=== PATIENT | male | born 1935 | race Caucasian/White ===

== ENCOUNTER 2018-02-08 14:37 | Inpatient (IN) | payer MEDICARE, BC ==
[~2018-02-08] VITALS: Ht 180.3 cm; Wt 95.3 kg
[2018-02-08] MEDS ORDERED: ENALAPRIL (14:53)
[2018-02-08] MEDS ORDERED: METOPROLOL PO (14:53)
[2018-02-08 15:31] LABS: BASOPHILS # (AUTO) 0.1 K/uL (0.0-8.0); BASOPHILS % (AUTO) 0.6 % (0.0-2.0); EOSINOPHILS # (AUTO) 0.1 K/uL (0.0-0.7); HEMATOCRIT 50.6 % (36.7-47.1); HEMOGLOBIN 16.8 g/dL (12.5-16.3); LYMPHOCYTES % (AUTO) 14.4 % (20.5-51.5); MEAN CORPUSCULAR HEMOGLOBIN 31.7 uug (23.8-33.4); MEAN CORPUSCULAR HGB CONC 33 g/dL (32.5-36.3); MEAN CORPUSCULAR VOLUME 95.8 fL (73.0-96.2); MONOCYTES # (AUTO) 1.1 K/uL (2.0-10.0); MONOCYTES % (AUTO) 7.9 % (0.0-11.0); NEUTROPHILS # (AUTO) 10.7 K/uL (1.8-8.9); NEUTROPHILS % (AUTO) 76.1 % (38.5-71.5); PLATELET COUNT (AUTO) 146 K/uL (152-348); RED BLOOD CELL COUNT(AUTO) 5.28 MIL/uL (4.06-5.63); WHITE BLOOD COUNT (AUTO) 14.1 K/uL (3.6-10.2)
[2018-02-08 15:33] LABS: CARBON DIOXIDE 30 mmol/L (21-32); CHLORIDE 105 mmol/L (98-107); CREATININE 1.6 mg/dL (0.6-1.3); GLUCOSE 132 mg/dL (74-106); POTASSIUM 4.9 mmol/L (3.5-5.1); UREA NITROGEN, BLOOD 23 mg/dL (7-18)
[2018-02-08 15:38] LABS: ALANINE AMINOTRANSFERASE 47 U/L (16-63); ALKALINE PHOSPHATASE 47 U/L (50-136); ASPARTATE AMINOTRANSFERASE 29 U/L (15-37); BILIRUBIN,TOTAL 1.3 mg/dL (0.2-1.0); CREATINE KINASE, TOTAL 131 U/L (39-308); TOTAL PROTEIN, SERUM 6.7 g/dL (6.4-8.2)
--- NOTE | 2018-02-08 16:38 | NUR ---
LOREN BARRIENTOS TALKING TO DR. ALCARAZ PT OWN PMD, PER PT REQUEST. Addendum: 02/08/18 at 1646 by SHELBI [phone]
--- NOTE | 2018-02-08 16:51 | NUR ---
Received telephone call from Gi from pt's pmd office ( Dr. Duque ) who stated they called [facility] and attempted to transfer the patient but were told there are no beds available.
[2018-02-08 16:57] LABS: *BLOOD, URINE Trace-lysed (NEGATIVE); *CLARITY,URINE CLEAR (CLEAR); *COLOR,URINE DARK YELLOW (YELLOW); *KETONES,URINE 1+ (NEGATIVE); *PROTEIN,URINE 2+ (NEGATIVE); *UROBILINOGEN,URINE 0.2 E.U./dl (NORMAL); LEUKOCYTE ESTERASE ,URINE NEGATIVE (NEGATIVE); NITRITE, URINE NEGATIVE (NEGATIVE); PH,URINE 5.5 (5.0-8.0); UGLUCOSE NEGATIVE (NEGATIVE)
[2018-02-08 17:16] LABS: *BILIRUBIN,URIN 1+ (NEGATIVE)
[2018-02-08 17:19] LABS: MUCUS,URINE MANY /LPF (0-FEW); WBC,URINE 0-3 /HPF (0-3)
[2018-02-08] MEDS: IV NS 1000 ML 1,000 ML IV PRN ×2 (17:40→23:54)
--- NOTE | 2018-02-08 18:57 | NUR ---
REYNALDO GRANGER PROVIDED FOR PT.
--- NOTE | 2018-02-08 19:16 | NUR ---
ASSUMED CARE OF PATIENT. PATIENT AWAITING INPATIENT ADMISSION. PATIENT NOTED W/ A-FIB ON MANAGER OF SUPPLY CHAIN. THIS CONDITION IS CHRONIC PER PATIENT. NO ACUTE DISTRESS AT THIS TIME. PATIENT DENIES CHEST PAIN/RESPIRATORY DISTRESS.
[2018-02-08 20:00] VITALS: BP 139/78
--- NOTE | 2018-02-08 20:23 | NUR ---
Pt. admitted to Telemetry , under care of Dr. May. Dx: Syncope. Belongs List completed. Report given to Abigail Payne , charge nurse for Telemetry unit.
--- NOTE | 2018-02-08 20:30 | NUR ---
PT RECEIVED FROM ED, VIA WHEELCHAIR. ORIENTED TO ROOM. A/OX3. ABLE TO MAKE NEEDS KNOWN. V/S STABLE. IN NO ACUTE DISTRESS. NO C/O PAIN AT THIS TIME. 117 AFIB ON THE TELE MONITOR. ON RA, TOLERATING WELL. AFEBRILE. WITH IV INTACT AND PATENT. IVF HELD AT THIS TIME PER MD ORDERS. AT BEDSIDE. HOB ELEVATED. SAFETY MEASURES IMPLEMENTED. BED ALARM SET. CALL LIGHT WITHIN REACH.
[2018-02-08] MEDS ORDERED: METOPROLOL TARTRATE 25 MG TABLET PO SCH (21:00)
[2018-02-08] MEDS ORDERED: MORPHINE SULFATE 4 MG/1 ML DISP.SYRIN IV PRN ×2 (22:15→23:45)
[2018-02-08] MEDS ORDERED: ONDANSETRON 4 MG/2 ML VIAL IV PRN ×2 (22:15→23:45)
[2018-02-08] MEDS ORDERED: ACETAMINOPHEN 325 MG TABLET PO PRN ×2 (22:15→23:45)
[2018-02-08] MEDS ORDERED: ATORVASTATIN 20 MG TABLET PO ONE (22:30)
[2018-02-08] MEDS ORDERED: ASPIRIN EC 325 MG TABLET.DR PO ONE (22:30)
[2018-02-08] MEDS ORDERED: HEPARIN/D5W DRIP 500 ML IV PRN (23:15)
[2018-02-08] MEDS ORDERED: AMIODARONE HCL IV 150 MG in IV DEXTROSE 5% 100 ML IV ONE (23:15)
--- NOTE | 2018-02-08 23:45 | NUR ---
PATIENT TRANSFERRED TO CCU, PER MD ORDER. PT SEEN WITH A-FIB AND INCREASED HR ON TELE MONITOR. ALL NEEDS ATTENDED. SAFETY MAINTAINED.
[2018-02-09] VITALS (8 sets, daily range): BP systolic 109–193; BP diastolic 58–108
--- NOTE | 2018-02-09 | NUR ---
RECEIVED PT FROM [facility]2 VIA BED, AAOX3, DENIES CHEST PAIN. CONNECTED TO BEDSIDE MONITORS. C-SCOPE AFIB CONTROLLED-84. O2 SAT ON RM AIR 98%. STARTED #2 IV SITE FOR DRIPS. VOIDED TO CLEAR VERNA URINE ADEQ. AMT. CORDARONE 150MG IV BOLUS GIVEN THEN STARTED ON CORDARONE DRIP @ 1MG/HR. ON LEFT HAND IV SITE ORDERED. NOT IN ANY DISTRESS.
[2018-02-09] MEDS ORDERED: AMIODARONE HCL 150 MG/3 ML VIAL IV ONE ×2 (00:04)
[2018-02-09] MEDS ORDERED: METOPROLOL TARTRATE 25 MG TABLET ONE (00:23)
[2018-02-09] MEDS: METOPROLOL TARTRATE 25 MG TABLET PO SCH ×3 (00:24→12:12)
[2018-02-09] MEDS ORDERED: HEPARIN SODIUM,PORCINE 5,000 UNITS/ML VIAL ONE (00:48)
--- NOTE | 2018-02-09 00:50 | NUR ---
C-SCOPE CONVERTED TO SR W/ STABLE BP.
[2018-02-09] MEDS ORDERED: HEPARIN SODIUM,PORCINE 10,000 UNITS/10 ML VIAL INJ ONE (01:00)
--- NOTE | 2018-02-09 01:12 | NUR ---
STARTED HEPARIN DRIP @ 1425UNITS PER HOUR, AFTER IV BOLUS 6,650UNITS ACCDG TO ACS PROTOCOL & ACCDG TO PTS. WT.
[2018-02-09] MEDS: AMIODARONE HCL IV 900 MG in IV DEXTROSE 5% 482 ML IV PRN ×3 (01:15)
[2018-02-09 05:21] LABS: BASOPHILS # (AUTO) 0.1 K/uL (0.0-8.0); BASOPHILS % (AUTO) 0.6 % (0.0-2.0); EOSINOPHILS # (AUTO) 0.2 K/uL (0.0-0.7); EOSINOPHILS % (AUTO) 2.7 % (0.0-7.0); HEMATOCRIT 44.3 % (36.7-47.1); HEMOGLOBIN 14.6 g/dL (12.5-16.3); LYMPHOCYTES # (AUTO) 2.1 K/uL (20.0-40.0); LYMPHOCYTES % (AUTO) 23.4 % (20.5-51.5); MEAN CORPUSCULAR HEMOGLOBIN 31.4 uug (23.8-33.4); MEAN CORPUSCULAR HGB CONC 33 g/dL (32.5-36.3); MEAN CORPUSCULAR VOLUME 95.3 fL (73.0-96.2); MONOCYTES # (AUTO) 0.8 K/uL (2.0-10.0); MONOCYTES % (AUTO) 8.9 % (0.0-11.0); NEUTROPHILS # (AUTO) 5.8 K/uL (1.8-8.9); NEUTROPHILS % (AUTO) 64.4 % (38.5-71.5); PLATELET COUNT (AUTO) 136 K/uL (152-348); RED BLOOD CELL COUNT(AUTO) 4.65 MIL/uL (4.06-5.63)
[2018-02-09 05:43] LABS: ALANINE AMINOTRANSFERASE 36 U/L (16-63); ALKALINE PHOSPHATASE 35 U/L (50-136); ASPARTATE AMINOTRANSFERASE 24 U/L (15-37); BILIRUBIN,TOTAL 1.3 mg/dL (0.2-1.0); CARBON DIOXIDE 26 mmol/L (21-32); CHLORIDE 107 mmol/L (98-107); CHOLESTEROL 141 mg/dL (<200); CREATININE 1.1 mg/dL (0.6-1.3); GLUCOSE 135 mg/dL (74-106); HDL CHOLESTEROL 67 mg/dL (40-60); MAGNESIUM 1.7 mg/dL (1.8-2.4); PHOSPHOROUS 3.8 mg/dL (2.5-4.9); TOTAL PROTEIN, SERUM 5.5 g/dL (6.4-8.2); TRIGLYCERIDES 17 MG/DL (30-150); UREA NITROGEN, BLOOD 22 mg/dL (7-18)
[2018-02-09 05:54] LABS: THYROID STIMULATING HORMONE 1.646 mIU/mL (0.358-3.740)
--- NOTE | 2018-02-09 06:20 | NUR ---
HOLD HEPARIN DRIP FOR 60MINS, PTT-GREATER 150 SECS. DENIES CHEST PAIN.
[2018-02-09] MEDS ORDERED: PANTOPRAZOLE SODIUM 40 MG TABLET.DR PO SCH ×2 (07:00)
--- NOTE | 2018-02-09 07:15 | NUR ---
report received.Pt remains awake,alert,oriented.Denies pain,discomfort.Denies chest pain.SR on monitor.remains on Amiodorone gtt at 0.5 mg /min.Remains on Heparin gtt at 1175 units/hr.No s/s of bleeding.Pt consumed breakfast.Tolerated well.Pt at bedside.Plan of care updated.
[2018-02-09] MEDS ORDERED: ASPIRIN EC 325 MG TABLET.DR PO SCH (09:00)
--- NOTE | 2018-02-09 09:30 | NUR ---
Pt assisted to bedside comode .Pericare provided .Assisted to bed.Remains on Amiodorone gtt,Heparin gtt.Will continue to monitor.
[2018-02-09] MEDS: IV NS 1000 ML 1,000 ML IV PRN (09:51)
[2018-02-09] MEDS ORDERED: HEPARIN SODIUM,PORCINE 5,000 UNITS/ML VIAL IV PRN (11:45)
[2018-02-09] MEDS ORDERED: MAGNESIUM OXIDE 400 MG TABLET PO ONE (11:45)
--- NOTE | 2018-02-09 15:00 | NUR ---
Pt refused to obtain MRSA swab.All benefits explained.
[2018-02-09] MEDS ORDERED: BRIM5DRO3 EACHEYE (15:43)
[2018-02-09] MEDS ORDERED: ALLO300T2 PO (15:44)
[2018-02-09] MEDS ORDERED: AMLODIPINE 5 MG TABLET PO SCH (17:15)
[2018-02-09] MEDS ORDERED: hydrALAZINE HCL 50 MG TABLET PO PRN (17:15)
--- NOTE | 2018-02-09 17:20 | NUR ---
Pt seen,examined by gravel wheeler.Clinical Project Assistant aware of high blood pressure.New orders received.
--- NOTE | 2018-02-09 17:25 | NUR ---
Pt refused to be connected to a monitor.Pulled out IV,assisted with dressing.Pt states that he wants to go home AMA.Called ,called nursing greenskeeper supervisor.Spoke with pt family about all risk.
--- NOTE | 2018-02-09 18:00 | NUR ---
at bedside,speaking to pt and pt family at bedside.
--- NOTE | 2018-02-09 19:00 | NUR ---
PT REMAINS AT BEDSIDE.REFUSED TO BE CONNECTED TO MONITOR,REFUSED TO RECHECK BLOOD PRESSURE. IS AWARE.WAITING FOR PT TO BE DISCHARGE.
[2018-02-09] MEDS ORDERED: ATOR20TA PO (19:12)
[2018-02-09] MEDS ORDERED: METO50TA16 PO (19:12)
[2018-02-09] MEDS ORDERED: PANT40TA2 PO (19:12)
[2018-02-09] MEDS ORDERED: APIX5TAB PO (19:12)
[2018-02-09] MEDS ORDERED: AMLO5TAB4 PO (19:13)
--- NOTE | 2018-02-09 19:40 | NUR ---
PATIENT DISCHARGED TO HOME WITH SON IN PRIVATE CAR. Addendum: 02/09/18 at 2000 by PETER DOTSON RN PATIENT REFUSED FINAL VITAL SIGNS & TO WAIT: TO SIGN DISCHARGE INSTRUCTIONS; WHICH, WE WILL FAX [phone]
[2018-02-09] MEDS ORDERED: DOCUSATE SODIUM 100 MG CAPSULE PO SCH ×2 (21:00)
[2018-02-09] MEDS ORDERED: METOPROLOL TARTRATE 25 MG TABLET PO SCH (21:00)
[2018-02-09] MEDS ORDERED: METOPROLOL TARTRATE 50 MG TABLET PO SCH (21:00)
[2018-02-09] MEDS ORDERED: ATORVASTATIN 20 MG TABLET PO SCH ×2 (21:00)
== END 2018-02-09 19:40 | disposition home or self-care (01) | DRG 280 ==
LOC: ER 14:37 → TELE 19:58 → CCU 23:50
PROVIDERS: ADMIT Internal Medicine; ATTEND Internal Medicine
DX: I48.0 Paroxysmal atrial fibrillation (principal); I21.A1 Myocardial infarction type 2; N17.0 Acute kidney failure with tubular necrosis; G45.9 Transient cerebral ischemic attack, unspecified; E86.0 Dehydration; I11.9 Hypertensive heart disease without heart failure; E78.5 Hyperlipidemia, unspecified; E66.9 Obesity, unspecified; D72.828 Other elevated white blood cell count; I34.0 Nonrheumatic mitral (valve) insufficiency; M10.9 Gout, unspecified; Z68.29 Body mass index [BMI] 29.0-29.9, adult; M50.30 Other cervical disc degeneration, unspecified cervical region; Z90.79 Acquired absence of other genital organ(s); Z79.01 Long term (current) use of anticoagulants; Z79.899 Other long term (current) drug therapy; I45.10 Unspecified right bundle-branch block; I70.0 Atherosclerosis of aorta; N40.0 Benign prostatic hyperplasia without lower urinary tract symptoms
CPT/HCPCS: 36415; 70030-TC; 70450; 71045; 83735; 84100; 84443; 85025; 85730; 93005; 93307; A4663; J0282; J1644; J7030; J7060